=== PATIENT | male | born 1995 | race Caucasian/White ===

== ENCOUNTER 2016-12-13 11:28 | Emergency (ER) | payer BC, OTHER ==
[2016-12-13] MEDS ORDERED: Adacel (T-DAP) 0.5 ML VIAL ONE (14:55)
--- NOTE | 2016-12-13 15:28 | RAD ---
NASAL BONES 2 VIEWS: HISTORY: Laceration. COMPARISON: None. FINDINGS: No displaced nasal bone fracture. Mild soft tissue edema. IMPRESSION: No displaced nasal bone fracture. POS: [facility]
== END 2016-12-13 15:50 | disposition home or self-care (01) ==
LOC: SCSER 11:28
DX: S01.112A Laceration without foreign body of left eyelid and periocular area, initial encounter (principal); S01.21XA Laceration without foreign body of nose, initial encounter; W22.09XA Striking against other stationary object, initial encounter; Y93.64 Activity, baseball
CPT/HCPCS: 12015; 70160; 90471; 90715